=== PATIENT | female | born 1980 | race Caucasian/White ===

== ENCOUNTER 2021-05-17 13:11 | Outpatient (REF) | payer BC, SELFPAY ==
[2021-05-17 13:39] VITALS: BP 129/100; PULSE 81; RESP 16; TEMP 37.7; O2SAT 99
[2021-05-17 13:40] VITALS: BMI 35.9
== END 2021-05-17 13:12 | disposition home or self-care (01) ==
LOC: HO.MS 13:11
PROVIDERS: PCP Internal Medicine; Visit Provider Ophthalmology
PROC: (CPT 67840; principal; 2021-05-17 14:50)
DX: D23.111 Other benign neoplasm of skin of right upper eyelid, including canthus (principal); H52.209 Unspecified astigmatism, unspecified eye; F12.90 Cannabis use, unspecified, uncomplicated
CPT/HCPCS: 67840; 88305